=== PATIENT | male | born 1965 | race Caucasian/White ===

== ENCOUNTER 2017-03-01 16:57 | Inpatient (IN) | payer MEDICAID ==
[~2017-03-01] VITALS: Ht 157.5 cm; Wt 72.6 kg
[2017-03-01 16:58] VITALS: BP 122/83
--- NOTE | 2017-03-01 17:03 | NUR ---
Patient to bed 11.
--- NOTE | 2017-03-01 17:05 | NUR ---
51/M PRESENT TO ER C/O DIZZINESS AND PALPITATIONS x 3 DAYS. HX: NONE MEDS: NONE; DENIES N/V/D; SKIN IS PINK/WARM/DRY; AAOX4 WITH EVEN AND STEADY GAIT; LUNGS CLEAR BL; HR EVEN AND REGULAR; PT DENIES ANY FEVER, CP, SOB, OR COUGH AT THIS TIME; PATIENT STATES PAIN OF 8/10 AT THIS TIME; VSS; PATIENT POSITIONED FOR COMFORT; HOB ELEVATED; BEDRAILS UP X2; BED DOWN. ER MD MADE AWARE OF PT STATUS.
--- NOTE | 2017-03-01 17:05 | NUR ---
PT TRIAGED AND AMBULATED TO ER BED 11. ERMD NOTIFIED PATIENT STATUS.
--- NOTE | 2017-03-01 17:07 | NUR ---
DR JAIN EVALUATING AAO PT WITH AT BEDSIDE
[2017-03-01 17:27] LABS: BASOPHILS # (AUTO) 0.2 K/uL (0.00-0.22); EOSINOPHILS # (AUTO) 0.1 K/uL (0-0.4); HEMATOCRIT 48.2 % (36-52); HEMOGLOBIN 16.1 g/dL (12.0-18.0); LYMPHOCYTES # (AUTO) 1.4 K/uL (2.0-11.5); MEAN CORPUSCULAR HEMOGLOBIN 31 pg (27-31); MEAN CORPUSCULAR HGB CONC 33 g/dL (33-37); MEAN CORPUSCULAR VOLUME 92 fL (80-94); MONOCYTES # (AUTO) 0.6 K/uL (0.8-1.0); NEUTROPHILS # (AUTO) 4.4 K/uL (1.8-7.7); PLATELET COUNT (AUTO) 240 K/uL (140-450); RED BLOOD CELL COUNT(AUTO) 5.26 MIL/uL (4.20-6.10); RED CELL DISTRIBUTION WIDTH 12.8 % (11.6-13.7); WHITE BLOOD COUNT (AUTO) 6.7 K/uL (4.8-10.8)
[2017-03-01 17:37] LABS: ANION GAP 12.2 (8-16); CARBON DIOXIDE 28.3 mmol/L (21-32); CHLORIDE 105 mmol/L (98-107); CREATININE 0.9 mg/dL (0.7-1.3); GFR ARICAN-AMERICAN 114 mL/min (>90); GLUCOSE 128 mg/dL (74-106); POTASSIUM 3.5 mmol/L (3.5-5.1); SODIUM SERUM 142 mmol/L (136-145); UREA NITROGEN, BLOOD 15 mg/dL (7-18)
[2017-03-01 17:51] LABS: ALBUMIN 3.6 g/dL (3.4-5.0); ASPARTATE AMINOTRANSFERASE 24 U/L (15-37); MAGNESIUM 2.3 mg/dL (1.8-2.4); PHOSPHORUS 4.1 mg/dL (2.5-4.9); THYROID STIMULATING HORMONE 1.14 uIU/mL (0.34-3.74); TOTAL BILIRUBIN 0.7 mg/dL (0.0-1.0)
[2017-03-01] MEDS ORDERED: ASPIRIN 81 MG TAB.CHEW PO ONE (18:20)
[2017-03-01] MEDS ORDERED: ACETAMINOPHEN 325 MG TAB PO PRN (18:45)
[2017-03-01] MEDS ORDERED: HYDROcodone/APAP 7.5/325 MG 1 TAB PO PRN (18:45)
[2017-03-01] MEDS ORDERED: ONDANSETRON 4 MG/2 ML VIAL IVP PRN (18:45)
[2017-03-01] MEDS ORDERED: NITROGLYCERIN 0.4 MG TAB SL PRN (18:50)
[2017-03-01 19:13] LABS: PROTHROMBIN TIME 10.7 secs (10.8-13.4)
[2017-03-01 19:18] LABS: CHOL/HDL RATIO 3.5 (1-4.5); FREE T4 (FREE THYROXINE) 0.94 ng/dL (0.76-1.46)
--- NOTE | 2017-03-01 19:20 | NUR ---
PT ARRIVED TO UNIT VIA GURNEY, AMBULATED TO BED WITH STEADY GAIT. RECEIVED REPORT AT BEDSIDE FROM REAL ESTATE PROCESSOR. PT IS A/OX4, ON ROOM AIR. PT HAS A 22G IV TO RIGHT FOREARM, SALINE LOCKED. SKIN IS INTACT. TELE MONITOR APPLIED, MRSA SWAB OBTAINED. SAFETY PRECAUTIONS IN PLACE. UPDATED BOARD. DISCUSSED PLAN OF CARE WITH PT, PT VERBALIZED UNDERSTANDING. VITAL SIGNS WITHIN NORMAL LIMITS. PT IN STABLE CONDITION, NO SIGNS OF DISTRESS NOTED. BED IN LOW POSITION, CALL LIGHT WITHIN REACH. WILL CONTINUE TO MONITOR.
--- NOTE | 2017-03-01 19:20 | NUR ---
Patient will be admitted to care of DR ALSTON. Admited to TELE. Will go to room 112B. Belongings list completed. Report to BELEM OLSON.
[2017-03-01] MEDS ORDERED: LORazepam 1 MG TAB PO PRN (20:30)
[2017-03-01] MEDS: NACL 0.9% 1,000 ML IV SCH (20:30)
[2017-03-01 21:00] VITALS: BP 113/62
[2017-03-01] MEDS: DOCUSATE SODIUM 100 MG GELCAP PO SCH (21:20)
[2017-03-01] MEDS: ATORVASTATIN 20 MG TAB PO SCH (21:20)
[2017-03-01] MEDS: METOPROLOL 25 MG TAB PO SCH (21:21)
[2017-03-02] VITALS: BP 111/70
[2017-03-02 00:57] LABS: BARBITURATE, URINE NEG. ng/ml (NEG <=200); BENZODIAZEPINE, URINE NEG. ng/mL (NEG <=200); CANNABINOID, URINE NEG. ng/mL (NEG <=50); COCAINE, URINE NEG. ng/mL (NEG <=300); OPIATE, URINE NEG. ng/mL (NEG <=2000); PHENCYCLIDINE SCREEN,URINE NEG. ng/mL (NEG <=25)
[2017-03-02 01:04] LABS: APPEARANCE,URINE HAZY (CLEAR); BILIRUBIN,URINE NEGATIVE (NEGATIVE); BLOOD, URINE TRACE-I (NEGATIVE); COLOR,URINE YELLOW (YELLOW); LEUKOCYTE ESTERASE ,URINE NEGATIVE (NEGATIVE); NITRITE, URINE NEGATIVE (NEGATIVE); UGLUCOSE NEGATIVE (NEGATIVE)
[2017-03-02 01:19] LABS: RBC,URINE 0-5 (RARE) /HPF (0-5)
--- NOTE | 2017-03-02 03:18 | NUR ---
SCD'S APPLIED. PT IN STABLE CONDITION.
[2017-03-02 04:00] VITALS: BP 105/69
[2017-03-02] MEDS: NACL 0.9% 1,000 ML IV SCH (04:58)
--- NOTE | 2017-03-02 05:00 | NUR ---
SET SEIZURE PRECAUTIONS IN PLACE. PT STABLE
--- NOTE | 2017-03-02 07:10 | NUR ---
ENDORSED PT TO DAY SHIFT RN FOR CONTINUITY OF CARE. PT IN STABLE CONDITION.
--- NOTE | 2017-03-02 07:12 | NUR ---
RECEIVED REPORT FROM REFRACTORY GRINDER OPERATOR RN. PATIENT IS AAOX4, RESPIRATORY EFFORT EVEN AND UNLABORED. NO SIGNS AND SYMPTOMS OF ACUTE DISTRESS NOTED AT THIS TIME. PATIENT HAS IV TO RIGHT ARM 22G INFUSING NS AT 100 ML/HR. SITE IS CLEAN, DRY, PATENT AND INTACT. PATIENT HAS SCD'S IN PLACE. DISCUSSED PLAN OF CARE WITH PATIENT. HE VERBALIZED UNDERSTANDING. WILL CONTINUE TO MONITOR.
[2017-03-02 07:23] LABS: ANION GAP 11.2 (8-16); BASOPHILS # (AUTO) 0.3 K/uL (0.00-0.22); BASOPHILS % (AUTO) 4.8 % (0.0-2.0); CARBON DIOXIDE 26.4 mmol/L (21-32); CREATININE 0.7 mg/dL (0.7-1.3); EOSINOPHILS # (AUTO) 0.3 K/uL (0-0.4); EOSINOPHILS % (AUTO) 5.1 % (0.0-4.0); HEMATOCRIT 43.3 % (36-52); HEMOGLOBIN 14.8 g/dL (12.0-18.0); LYMPHOCYTES # (AUTO) 1.8 K/uL (2.0-11.5); LYMPHOCYTES % (AUTO) 27.6 % (20.5-51.1); MEAN CORPUSCULAR HEMOGLOBIN 31 pg (27-31); MEAN CORPUSCULAR HGB CONC 34 g/dL (33-37); MEAN CORPUSCULAR VOLUME 91 fL (80-94); MONOCYTES # (AUTO) 0.8 K/uL (0.8-1.0); MONOCYTES % (AUTO) 12.5 % (1.7-9.3); NEUTROPHILS # (AUTO) 3.4 K/uL (1.8-7.7); PLATELET COUNT (AUTO) 193 K/uL (140-450); POTASSIUM 3.6 mmol/L (3.5-5.1); RED BLOOD CELL COUNT(AUTO) 4.75 MIL/uL (4.20-6.10); RED CELL DISTRIBUTION WIDTH 12.9 % (11.6-13.7); WHITE BLOOD COUNT (AUTO) 6.6 K/uL (4.8-10.8)
[2017-03-02 08:00] VITALS: BP 106/66
--- NOTE | 2017-03-02 08:28 | NUR ---
PATIENT HAS BEEN SCREENED AND CATEGORIZED LOW NUTRITION RISK. PATIENT WILL BE SEEN WITHIN 7 DAYS OF ADMISSION. 03/08/17 PAWEL LATIF MBA, RD
[2017-03-02] MEDS: FOLIC ACID 1 MG TAB PO SCH (09:32)
[2017-03-02] MEDS: DOCUSATE SODIUM 100 MG GELCAP PO SCH ×2 (09:33→20:42)
[2017-03-02] MEDS: THIAMINE 100 MG TAB PO SCH (09:34)
[2017-03-02] MEDS: MULTIVITAMIN 1 TAB PO SCH (09:34)
[2017-03-02] MEDS: ASPIRIN 81 MG TAB.CHEW PO SCH (09:34)
[2017-03-02] MEDS: METOPROLOL 25 MG TAB PO SCH ×2 (09:35→20:45)
[2017-03-02] MEDS: LISINOPRIL 5 MG TAB PO SCH (09:36)
[2017-03-02 12:00] VITALS: BP 109/57
[2017-03-02] MEDS ORDERED: MECLIZINE 25 MG TAB PO PRN (13:05)
[2017-03-02] MEDS ORDERED: PANTOPRAZOLE 40 MG TABEC PO SCH (13:10)
--- NOTE | 2017-03-02 15:21 | NUR ---
P.T. NOTES P.T. EVAL DONE, D/C FROM P.T. AFTER EVAL, NURSING TO AMBULATE PATIENT AD LEE.
[2017-03-02 16:00] VITALS: BP 119/65
--- NOTE | 2017-03-02 19:21 | NUR ---
ENDORSED PATIENT TO ACCOUNTING MACHINE MECHANIC NURSE FOR CONTINUITY OF CARE. PATIENT IN STABLE CONDITION.
--- NOTE | 2017-03-02 19:22 | NUR ---
RECEIVED REPORT AT BEDSIDE FROM DAY SHIFT RN. PT IS A/OX4, ON ROOM AIR. PT HAS A 22G IV TO RIGHT FOREARM, SALINE LOCKED. SKIN IS INTACT. AMBULATES WITH STEADY GAIT. SAFETY PRECAUTIONS IN PLACE. UPDATED BOARD. DISCUSSED PLAN OF CARE WITH PT, PT VERBALIZED UNDERSTANDING. VITAL SIGNS WITHIN NORMAL LIMITS. PT IN STABLE CONDITION, NO SIGNS OF DISTRESS NOTED. BED IN LOW POSITION, CALL LIGHT WITHIN REACH. WILL CONTINUE TO MONITOR.
[2017-03-02 19:39] VITALS: BP 101/67
[2017-03-02] MEDS: ATORVASTATIN 20 MG TAB PO SCH (20:42)
--- NOTE | 2017-03-02 20:45 | NUR ---
ADMINISTERED SCHEDULED MEDICATIONS, PT TOLERATED WELL. HELD LOPRESSOR BECAUSE PT BP AT THE MOMENT IS 99/65. EXPLAINED TO PT WHY IT WAS HELD, PT VERBALIZED UNDERSTANDING. PT IN STABLE CONDITION, NO SIGNS OF DISTRESS NOTED. BED IN LOW POSITION, CALL LIGHT WITHIN REACH. WILL CONTINUE TO MONITOR.
[2017-03-03] VITALS: BP 109/65
--- NOTE | 2017-03-03 00:18 | NUR ---
VITAL SIGNS WITHIN NORMAL LIMITS. PT IN STABLE CONDITION, NO SIGNS OF DISTRESS NOTED. PT GOING BACK TO SLEEP. BED IN LOW POSITION, CALL LIGHT WITHIN REACH. WILL CONTINUE TO MONITOR.
[2017-03-03 04:00] VITALS: BP 94/61
[2017-03-03] MEDS: NACL 0.9% 1,000 ML IV SCH (04:48)
--- NOTE | 2017-03-03 07:17 | NUR ---
ENDORSED PT TO DAY SHIFT RN FOR CONTINUITY OF CARE. PT IN STABLE CONDITION.
--- NOTE | 2017-03-03 07:20 | NUR ---
RECEIVED REPORT FROM IV THERAPY NURSE RN. PATIENT IS AAOX4, RESPIRATORY EFFORT EVEN AND UNLABORED. NO SIGNS AND SYMPTOMS OF ACUTE DISTRESS NOTED AT THIS TIME. PATIENT HAS IV TO RIGHT ARM 22G INFUSING NS AT 10 ML/HR. SITE IS CLEAN, DRY, PATENT AND INTACT. PATIENT HAS SCD'S IN PLACE. DISCUSSED PLAN OF CARE WITH PATIENT. HE VERBALIZED UNDERSTANDING. WILL CONTINUE TO MONITOR.
[2017-03-03 07:56] LABS: BASOPHILS # (AUTO) 0.5 K/uL (0.00-0.22); BASOPHILS % (AUTO) 4.7 % (0.0-2.0); EOSINOPHILS # (AUTO) 0.6 K/uL (0-0.4); EOSINOPHILS % (AUTO) 6.2 % (0.0-4.0); HEMATOCRIT 49.9 % (36-52); HEMOGLOBIN 16.2 g/dL (12.0-18.0); LYMPHOCYTES # (AUTO) 2.1 K/uL (2.0-11.5); LYMPHOCYTES % (AUTO) 20.6 % (20.5-51.1); MEAN CORPUSCULAR HEMOGLOBIN 30 pg (27-31); MEAN CORPUSCULAR HGB CONC 33 g/dL (33-37); MEAN CORPUSCULAR VOLUME 92 fL (80-94); MONOCYTES % (AUTO) 10.3 % (1.7-9.3); NEUTROPHILS # (AUTO) 5.8 K/uL (1.8-7.7); NEUTROPHILS % (AUTO) 58.2 % (42.2-75.2); PLATELET COUNT (AUTO) 163 K/uL (140-450); RED BLOOD CELL COUNT(AUTO) 5.43 MIL/uL (4.20-6.10); RED CELL DISTRIBUTION WIDTH 12.8 % (11.6-13.7)
[2017-03-03 08:00] VITALS: BP 111/61
[2017-03-03 08:09] LABS: ANION GAP 11.6 (8-16); CARBON DIOXIDE 27.3 mmol/L (21-32); CREATININE 0.7 mg/dL (0.7-1.3); POTASSIUM 3.9 mmol/L (3.5-5.1)
[2017-03-03] MEDS: METOPROLOL 25 MG TAB PO SCH (09:00)
[2017-03-03 09:27] LABS: MAGNESIUM 2.2 mg/dL (1.8-2.4); PHOSPHORUS 4.2 mg/dL (2.5-4.9)
[2017-03-03] MEDS: THIAMINE 100 MG TAB PO SCH (09:46)
[2017-03-03] MEDS: DOCUSATE SODIUM 100 MG GELCAP PO SCH (09:47)
[2017-03-03] MEDS: FOLIC ACID 1 MG TAB PO SCH (09:47)
[2017-03-03] MEDS: MULTIVITAMIN 1 TAB PO SCH (09:47)
[2017-03-03] MEDS: ASPIRIN 81 MG TAB.CHEW PO SCH (09:47)
[2017-03-03] MEDS: LISINOPRIL 5 MG TAB PO SCH (09:48)
[2017-03-03 12:00] VITALS: BP 105/71
[2017-03-03] MEDS ORDERED: OMEP20TC12 PO (12:54)
[2017-03-03] MEDS ORDERED: ATOR20TA40 PO (13:02)
[2017-03-03] MEDS ORDERED: PNEUMOCOCCAL VACCINE 23 MCG/0.5 ML VIAL IMVAC SCH (13:40)
[2017-03-03] MEDS ORDERED: INFLUENZA VIRUS VACCINE QUAD 0.5 ML SYR IMVAC SCH (13:40)
--- NOTE | 2017-03-03 15:15 | NUR ---
DISCHARGE ORDER IS IN PLACE. EXPLAINED TO PATIENT NEED TO FOLLOW UP WITH DR MEL DOLL, INSTRUCTED HIM WHERE THE TELEPHONE NUMBER AND ADDRESS WAS ON HIS DISCHARGE PAPERWORK. EXPLAINED TO HIM THE IMPORTANCE OF WHEN TO SEEK MEDICAL ATTENTION. EXPLAINED TO HIM THE INSTRUCTIONS THAT THE DOCTOR HAD LEFT FOR HIM, INCLUDING THE PHARMACY WHERE THEY CALLED HIS NEW MEDICATION IN TO. PATIENT VERBALIZED UNDERSTANDING. IV SITE AND FLUIDS REMOVED AT THIS TIME. SITE IS CLEAN AND DRY. CATHETER INTACT. ALL BELONGINGS ARE WITH PATIENT. REMOVED ID BAND. PATIENT HAS NO SIGNS AND SYMPTOMS OF DISTRESS NOTED AT THIS TIME. IN STABLE CONDITION TO LEAVE. WILL WALK OUT WITH PATIENT.
== END 2017-03-03 15:15 | disposition home or self-care (01) | DRG 48 ==
LOC: MED 16:57 → MTU 18:44
PROVIDERS: ADMIT Family Medicine; ATTEND Family Medicine
DX: G90.9 Disorder of the autonomic nervous system, unspecified (principal); I24.9 Acute ischemic heart disease, unspecified; E78.2 Mixed hyperlipidemia; F10.20 Alcohol dependence, uncomplicated; Y90.9 Presence of alcohol in blood, level not specified; R31.9 Hematuria, unspecified; M94.0 Chondrocostal junction syndrome [Tietze]; K21.9 Gastro-esophageal reflux disease without esophagitis; E66.3 Overweight; Z68.29 Body mass index [BMI] 29.0-29.9, adult
CPT/HCPCS: 36415; 70450; 71010; 76770; 80048; 80053; 80305; 81001; 82140; 82150; 83036; 83690; 83735; 83880; 84100; 84439; 84443; 84484; 85025; 85610; 85730; 87081; 87086; 90658; 90732; 93005; 93880; 99285; G0482; J7030; Q0092

== ENCOUNTER 2017-08-10 18:30 | Emergency (ER) | payer MEDICAID ==
[~2017-08-10] VITALS: Ht 167.6 cm; Wt 74.8 kg
[~2017-08-10 18:30] MED LIST: ATOR20TA40 PO; OMEP20TC12 PO
[2017-08-10 18:34] VITALS: BP 129/75
--- NOTE | 2017-08-10 18:34 | NUR ---
PT AMBULATED TO BED 3
--- NOTE | 2017-08-10 18:39 | NUR ---
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 PT DENIES ANY CP AT THIS TIME. DENIES N/V/D; SKIN IS PINK/WARM/DRY; AAOX4 WITH EVEN AND STEADY GAIT; PATIENT STATES PAIN OF 0/10 AT THIS TIME; VSS; PATIENT POSITIONED FOR COMFORT; HOB ELEVATED; BEDRAILS UP X2; BED DOWN. ER MD MADE AWARE OF PT STATUS.
--- NOTE | 2017-08-10 18:50 | NUR ---
Patient being evaluated by physician at bedside.
[2017-08-10 19:10] LABS: BASOPHILS % (AUTO) 0.3 % (0.0-2.0); EOSINOPHILS # (AUTO) 0.2 K/uL (0-0.4); EOSINOPHILS % (AUTO) 2.5 % (0.0-4.0); HEMATOCRIT 47.2 % (36-52); LYMPHOCYTES # (AUTO) 1.5 K/uL (2.0-11.5); LYMPHOCYTES % (AUTO) 19.7 % (20.5-51.1); MEAN CORPUSCULAR HEMOGLOBIN 31 pg (27-31); MEAN CORPUSCULAR HGB CONC 34 g/dL (33-37); MEAN CORPUSCULAR VOLUME 90.9 fL (80-94); MONOCYTES # (AUTO) 0.7 K/uL (0.8-1.0); MONOCYTES % (AUTO) 9.3 % (1.7-9.3); NEUTROPHILS # (AUTO) 5.1 K/uL (1.8-7.7); NEUTROPHILS % (AUTO) 68.2 % (42.2-75.2); PLATELET COUNT (AUTO) 229 K/uL (140-450); RED BLOOD CELL COUNT(AUTO) 5.19 MIL/uL (4.20-6.10); RED CELL DISTRIBUTION WIDTH 13.4 % (11.6-13.7); WHITE BLOOD COUNT (AUTO) 7.5 K/uL (4.8-10.8)
--- NOTE | 2017-08-10 19:10 | NUR ---
RECEVIED REPORT FROM DANIELLE PATRICIA.
[2017-08-10 19:27] LABS: ANION GAP 10.1 (8-16); CARBON DIOXIDE 28.3 mmol/L (21-32); CREATININE 0.9 mg/dL (0.7-1.3); POTASSIUM 3.4 mmol/L (3.5-5.1)
[2017-08-10 19:33] LABS: ALBUMIN 3.5 g/dL (3.4-5.0); TOTAL BILIRUBIN 0.8 mg/dL (0.0-1.0)
[2017-08-10] MEDS ORDERED: MECLIZINE 25 MG TAB PO ONE (20:00)
--- NOTE | 2017-08-10 20:00 | NUR ---
PT REPORTS FEELING BETTER. RESTING COMFORTABLY
[2017-08-10 20:30] VITALS: BP 111/60
== END 2017-08-10 20:30 | disposition home or self-care (01) ==
LOC: MED 18:30
DX: H83.09 Labyrinthitis, unspecified ear (principal); Z79.899 Other long term (current) drug therapy; E78.00 Pure hypercholesterolemia, unspecified
CPT/HCPCS: 36415; 71045; 80053; 83880; 84484; 85025; 99285; J8597; Q0092

== ENCOUNTER 2017-12-21 11:40 | Emergency (ER) | payer MEDICAID ==
[~2017-12-21] VITALS: Ht 165.1 cm; Wt 76.7 kg
[2017-12-21 11:48] VITALS: BP 148/78
--- NOTE | 2017-12-21 11:58 | NUR ---
PATIENT PRESENTS TO ED WITH c/o left sided posterior neck pain x 2 months. Patient denies any injury to neck. Patient sts he feels "a bump" to left side of neck. PATIENT STATES PAIN OF 9/10 AT THIS TIME; VSS; PATIENT POSITIONED FOR COMFORT; HOB ELEVATED; BEDRAILS UP X2; BED DOWN. ER MD MADE AWARE OF PT STATUS.
[2017-12-21] MEDS ORDERED: KETOROLAC 60 MG/2 ML VIAL IM ONE (12:05)
[2017-12-21] MEDS ORDERED: methylPREDNISolone SS 125 MG in WATER STERILE 2 ML IM ONE (12:05)
--- NOTE | 2017-12-21 13:06 | NUR ---
PT IS OFF UNIT FOR CT SCAN
[2017-12-21 13:55] VITALS: BP 148/78
== END 2017-12-21 13:55 | disposition home or self-care (01) ==
LOC: MED 11:40
DX: M43.6 Torticollis (principal); Z79.899 Other long term (current) drug therapy
CPT/HCPCS: 72125; 96372; 99284; J1885; J2930